=== PATIENT | male | born 1980 | race Caucasian/White ===

== ENCOUNTER 2021-04-17 20:35 | Emergency (ER) | payer OTHER ==
[2021-04-17 22:34] LABS: RED BLOOD COUNT 4.94 M/UL (4.20-5.50)
[2021-04-17 23:11] LABS: BUN/CREATININE RATIO 15 (0-10)
[2021-04-18 02:14] LABS: HEMOGLOBIN 14.5 gm/dl (14.0-17.5)
== END 2021-04-18 02:40 | disposition short-term general hospital (02) ==
LOC: ER1 20:35
PROVIDERS: Nurse Practitioner; Physician Assistant
DX: S32.401A Unspecified fracture of right acetabulum, initial encounter for closed fracture (principal); S32.501A Unspecified fracture of right pubis, initial encounter for closed fracture; Z88.8 Allergy status to other drugs, medicaments and biological substances; W01.0XXA Fall on same level from slipping, tripping and stumbling without subsequent striking against object, initial encounter
CPT/HCPCS: 72131; 72193; 73522; 80053; 85014; 85018; 85025; 96374; 96375; 99285; J1170; J2270; J2360; J3360; Q9967